=== PATIENT | female | born 1945 | race Caucasian/White ===

== ENCOUNTER 2017-09-06 17:06 | Inpatient (IN) | payer MEDICARE, OTHER ==
[~2017-09-06] VITALS: Ht 154.9 cm; Wt 68.2 kg
[2017-09-06] MEDS ORDERED: albuterol 2.5 MG/3 ML nebule NEB ONE (17:30)
[2017-09-06] MEDS ORDERED: levoFLOXACIN-Levaquin 750MG/D5 150 ML IV STA (17:54)
[2017-09-06] MEDS ORDERED: methylPREDNISolone sod succ 125mg/2ml vial IV ONE (17:55)
[2017-09-06 17:58] LABS: BASOPHILS % (AUTO) 0 % (0-1); EOSINOPHILS # (AUTO) 1.4 X10'3 (0-0.9); EOSINOPHILS % (AUTO) 17.2 % (0-6); HEMATOCRIT 42.7 % (35.0-45.0); HEMOGLOBIN 14.8 g/dl (12.0-16.0); LYMPHOCYTES # (AUTO) 1.3 X10'3 (1.1-4.8); LYMPHOCYTES % (AUTO) 16.2 % (21-51); MEAN CORPUSCULAR HEMOGLOBIN 32.4 PG (27.0-31.0); MEAN CORPUSCULAR HGB CONC 34.6 % (33.0-36.5); MEAN CORPUSCULAR VOLUME 93.6 FL (78-98); MEAN PLATELET VOLUME 7.3 FL (7.4-10.4); MONOCYTES # (AUTO) 0.5 X10'3 (0-0.9); MONOCYTES % (AUTO) 6.7 % (2-12); NEUTROPHILS # (AUTO) 4.8 X10'3 (1.8-7.7); NEUTROPHILS % (AUTO) 59.9 % (42-75); PLATELET COUNT 290 X10'3 (140-440); RED BLOOD COUNT 4.57 X10'6 (4.20-5.60); RED CELL DISTRIBUTION WIDTH 14.4 % (11.5-14.5)
[2017-09-06 18:08] LABS: PARTIAL THROMBOPLASTIN TIME 27 SECONDS (22-32)
[2017-09-06 18:15] LABS: ALANINE AMINOTRANSFERASE 24 U/L (12-78); ALBUMIN/GLOBULIN RATIO 1.1 (1.1-1.5); ALKALINE PHOSPHATASE 73 IU/L (46-116); ANION GAP 11 (8-16); ASPARTATE AMINO TRANSFERASE 20 U/L (10-37); BILIRUBIN,TOTAL 0.5 MG/DL (0.1-1.0); BLOOD UREA NITROGEN 10 MG/DL (7-18); BUN/CREATININE RATIO 13.3 (6.6-38.0); CALCIUM 8.6 MG/DL (8.5-10.1); CHLORIDE 103 MMOL/L (99-107); CREATININE 0.75 MG/DL (0.40-0.90); GLUCOSE 113 MG/DL (70-104); POTASSIUM 4.1 MMOL/L (3.5-5.1); SODIUM 140 MMOL/L (135-145); TOTAL CARBON DIOXIDE 26.4 MMOL/L (24-32); TOTAL PROTEIN 7.5 G/DL (6.4-8.2); eGFR 76 ML/MIN
[2017-09-06] MEDS ORDERED: aspirin 325mg tablet PO ONE (18:35)
[2017-09-06] MEDS ORDERED: heparin 10,000 units/1 ML INJ IV PRN (18:35)
[2017-09-06] MEDS ORDERED: heparin 10,000 units/1 ML INJ IV ONE (18:35)
[2017-09-06] MEDS ORDERED: PRAV20TA4 PO (19:29)
[2017-09-06] MEDS ORDERED: LOSA25TA96 PO (19:29)
[2017-09-06] MEDS ORDERED: UMEC62.5 IH (19:37)
[2017-09-06] MEDS ORDERED: ALBU1.257 NEB (19:38)
[2017-09-06] MEDS: aspirin 81mg tab.chew PO SCH (20:00)
[2017-09-06] MEDS ORDERED: acetaminophen 325mg tablet PO PRN ×2 (20:00)
[2017-09-06] MEDS: heparin, porcine 5000 units/ml vial SQ SCH (20:00)
[2017-09-06] MEDS: methylPREDNISolone sod succ 125mg/2ml vial IV SCH (20:00)
[2017-09-06] MEDS ORDERED: magnesium hydroxide 30ml (MOM) UD suspension PO PRN (20:00)
[2017-09-06] MEDS ORDERED: ondansetron/PF 4mg/2ml inj IV PRN (20:00)
[2017-09-06] MEDS ORDERED: morphine 4 MG/ML inj SYRINge IV PRN ×2 (20:00)
[2017-09-06] MEDS ORDERED: HYDROcodone/acetaminophen 10/325mg tab PO PRN (20:00)
[2017-09-06] MEDS ORDERED: metoclopramide 5 mg/ml inj IV PRN (20:00)
[2017-09-06] MEDS: levoFLOXACIN-Levaquin 500mg/D5 100 ML IV SCH (20:00)
[2017-09-06] MEDS ORDERED: HYDROmorphone 1 mg/ml syringe IV PRN ×2 (20:00)
[2017-09-06] MEDS ORDERED: bisacodyl 10mg suppository rectal RC PRN (20:00)
[2017-09-06] MEDS ORDERED: mag hydrox/Alum hydrox/simeth 30ml oral suspension PO PRN (20:00)
[2017-09-06] MEDS ORDERED: HYDROcodone/acetaminophen 5mg/325mg tablet PO PRN (20:00)
[2017-09-06] MEDS ORDERED: diphenhydrAMINE 25mg capsule PO PRN (20:00)
[2017-09-06] MEDS ORDERED: diphenhydrAMINE 50 mg/ml inj IV PRN (20:00)
[2017-09-06] MEDS ORDERED: acetaminophen 650mg rectal suppository RC PRN (20:00)
[2017-09-06] MEDS: normal saline 1000ml 1,000 ML IV SCH (20:19)
[2017-09-06] MEDS ORDERED: temazepam 15mg capsule PO PRN (21:00)
[2017-09-06 21:18] VITALS: BP 150/81
[2017-09-06 21:22] LABS: HEMOGLOBIN A1C 5.8 % (4.5-6.2)
[2017-09-06 21:39] LABS: MAGNESIUM 1.9 MG/DL (1.5-2.4); PHOSPHORUS 3.4 MG/DL (2.3-4.5)
[2017-09-06] MEDS: atorvastatin 20mg tablet PO SCH (21:40)
[2017-09-06] MEDS: lisinopril 10 MG tablet PO SCH (21:40)
[2017-09-06] MEDS: metoprolol tartrate 50mg tablet PO SCH (21:40)
[2017-09-06] MEDS: docusate sod 100mg capsule PO SCH (21:40)
[2017-09-06] MEDS ORDERED: albuterol 2.5 MG/3 ML nebule ONE (22:47)
[2017-09-06] MEDS: albuterol 2.5 MG/3 ML nebule NEB PRN (22:48)
[2017-09-06 23:00] VITALS: BP 164/102
[2017-09-07 00:04] LABS: D-DIMER 1.16 MG/L FEU (0-0.50)
[2017-09-07] MEDS: albuterol 2.5 MG/3 ML nebule NEB PRN ×5 (02:42→23:08)
[2017-09-07 03:00] VITALS: BP 127/75
[2017-09-07] MEDS: normal saline 1000ml 1,000 ML IV SCH ×3 (03:21→21:49)
[2017-09-07 06:00] VITALS: BP 97/55
[2017-09-07 07:15] LABS: BASOPHILS % (AUTO) 0.4 % (0-1); EOSINOPHILS % (AUTO) 0.4 % (0-6); HEMATOCRIT 40.5 % (35.0-45.0); HEMOGLOBIN 13.8 g/dl (12.0-16.0); LYMPHOCYTES % (AUTO) 14.8 % (21-51); MEAN CORPUSCULAR HEMOGLOBIN 32.2 PG (27.0-31.0); MEAN CORPUSCULAR HGB CONC 34.2 % (33.0-36.5); MEAN CORPUSCULAR VOLUME 94.1 FL (78-98); MEAN PLATELET VOLUME 8.5 FL (7.4-10.4); MONOCYTES # (AUTO) 0.2 X10'3 (0-0.9); MONOCYTES % (AUTO) 3.3 % (2-12); NEUTROPHILS # (AUTO) 5.7 X10'3 (1.8-7.7); NEUTROPHILS % (AUTO) 81.1 % (42-75); PLATELET COUNT 299 X10'3 (140-440); RED BLOOD COUNT 4.31 X10'6 (4.20-5.60); RED CELL DISTRIBUTION WIDTH 14.4 % (11.5-14.5); WHITE BLOOD COUNT 7.1 X10'3 (4.5-11.0)
[2017-09-07 07:31] LABS: ALANINE AMINOTRANSFERASE 18 U/L (12-78); ALBUMIN 3.4 G/DL (3.4-5.0); ALBUMIN/GLOBULIN RATIO 1.1 (1.1-1.5); ALKALINE PHOSPHATASE 62 IU/L (46-116); ANION GAP 9 (8-16); ASPARTATE AMINO TRANSFERASE 17 U/L (10-37); BILIRUBIN,TOTAL 0.4 MG/DL (0.1-1.0); BLOOD UREA NITROGEN 16 MG/DL (7-18); CALCIUM 8.8 MG/DL (8.5-10.1); CHLORIDE 102 MMOL/L (99-107); CREATININE 0.89 MG/DL (0.40-0.90); GLUCOSE 129 MG/DL (70-104); POTASSIUM 4.5 MMOL/L (3.5-5.1); SODIUM 139 MMOL/L (135-145); TOTAL CARBON DIOXIDE 27.8 MMOL/L (24-32); TOTAL PROTEIN 6.6 G/DL (6.4-8.2); eGFR 63 ML/MIN
[2017-09-07 07:34] LABS: CHOL/HDL RATIO 2.1 (0.00-4.99); CHOLESTEROL 182 MG/DL (0-200); HDL CHOLESTEROL 88 MG/DL (35-60); LDL CHOLESTEROL 81 MG/DL (50-100); TRIGLYCERIDES 25 MG/DL (20-135)
[2017-09-07] MEDS: docusate sod 100mg capsule PO SCH ×2 (07:57→20:47)
[2017-09-07] MEDS: levoFLOXACIN-Levaquin 500mg/D5 100 ML IV SCH (07:57)
[2017-09-07] MEDS: pantoprazole 40mg Tablet.DR PO SCH (07:59)
[2017-09-07] MEDS: atorvastatin 20mg tablet PO SCH ×2 (07:59→20:47)
[2017-09-07] MEDS: heparin, porcine 5000 units/ml vial SQ SCH (08:00)
[2017-09-07] MEDS: methylPREDNISolone sod succ 125mg/2ml vial IV SCH ×2 (08:00→20:47)
[2017-09-07] MEDS: metoprolol tartrate 50mg tablet PO SCH (08:01)
[2017-09-07] MEDS: lisinopril 10 MG tablet PO SCH (08:01)
[2017-09-07] MEDS: aspirin 81mg tab.chew PO SCH (08:01)
[2017-09-07] MEDS: nitroGLYCERIN 0.4mg/hour patch TD SCH (08:02)
[2017-09-07 11:00] VITALS: BP 121/68
[2017-09-07] MEDS ORDERED: iohexol 350MG/ML 100ml bottle IV ONE (12:18)
[2017-09-07 15:00] VITALS: BP 108/63
[2017-09-07 18:00] VITALS: BP 113/60
[2017-09-07] MEDS: lactobacillus rhamnosus 10,000 MMU CELLS/CAPSULE PO SCH (20:48)
[2017-09-07 22:00] VITALS: BP 110/70
[2017-09-08 01:49] LABS: HEMOGLOBIN 12.6 g/dl (12.0-16.0)
[2017-09-08 02:00] VITALS: BP 113/67
[2017-09-08 02:00] LABS: HEMATOCRIT 37.3 % (35.0-45.0); MEAN CORPUSCULAR HEMOGLOBIN 32.1 PG (27.0-31.0); MEAN CORPUSCULAR HGB CONC 33.9 % (33.0-36.5); MEAN CORPUSCULAR VOLUME 94.8 FL (78-98); MEAN PLATELET VOLUME 8.8 FL (7.4-10.4); PLATELET COUNT 280 X10'3 (140-440); RED BLOOD COUNT 3.93 X10'6 (4.20-5.60); RED CELL DISTRIBUTION WIDTH 13.8 % (11.5-14.5); WHITE BLOOD COUNT 12.1 X10'3 (4.5-11.0)
[2017-09-08 02:04] LABS: ALANINE AMINOTRANSFERASE 22 U/L (12-78); ALBUMIN 3.4 G/DL (3.4-5.0); ALBUMIN/GLOBULIN RATIO 1.1 (1.1-1.5); ALKALINE PHOSPHATASE 57 IU/L (46-116); ANION GAP 10 (8-16); ASPARTATE AMINO TRANSFERASE 17 U/L (10-37); BILIRUBIN,TOTAL 0.3 MG/DL (0.1-1.0); BLOOD UREA NITROGEN 22 MG/DL (7-18); BUN/CREATININE RATIO 25.3 (6.6-38.0); CALCIUM 8.5 MG/DL (8.5-10.1); CHLORIDE 99 MMOL/L (99-107); CREATININE 0.87 MG/DL (0.40-0.90); GLUCOSE 159 MG/DL (70-104); POTASSIUM 3.7 MMOL/L (3.5-5.1); SODIUM 134 MMOL/L (135-145); TOTAL CARBON DIOXIDE 25.1 MMOL/L (24-32); TOTAL PROTEIN 6.6 G/DL (6.4-8.2); eGFR 64 ML/MIN
[2017-09-08 02:29] LABS: TOTAL CELLS COUNTED 100
[2017-09-08 02:30] LABS: PLATELET ESTIMATE NORMAL
[2017-09-08 06:00] VITALS: BP 124/68
[2017-09-08] MEDS: pantoprazole 40mg Tablet.DR PO SCH (06:40)
[2017-09-08] MEDS: levoFLOXACIN-Levaquin 500mg/D5 100 ML IV SCH (08:30)
[2017-09-08] MEDS: methylPREDNISolone sod succ 125mg/2ml vial IV SCH ×2 (08:30→20:12)
[2017-09-08] MEDS: lactobacillus rhamnosus 10,000 MMU CELLS/CAPSULE PO SCH ×2 (08:31→20:11)
[2017-09-08] MEDS: docusate sod 100mg capsule PO SCH ×2 (08:31→20:11)
[2017-09-08] MEDS: atorvastatin 20mg tablet PO SCH (08:31)
[2017-09-08] MEDS: aspirin 81mg tab.chew PO SCH (08:32)
[2017-09-08] MEDS: nitroGLYCERIN 0.4mg/hour patch TD SCH (08:33)
[2017-09-08] MEDS: metoprolol tartrate 50mg tablet PO SCH (08:33)
[2017-09-08] MEDS: lisinopril 10 MG tablet PO SCH (08:34)
[2017-09-08] MEDS: albuterol 2.5 MG/3 ML nebule NEB PRN ×2 (08:53→15:08)
[2017-09-08 11:00] VITALS: BP 101/64
[2017-09-08 15:00] VITALS: BP 114/69
[2017-09-08 18:00] VITALS: BP 115/60
[2017-09-08 20:00] VITALS: BP 153/84
[2017-09-08] MEDS ORDERED: normal saline 1000ml 1,000 ML IV SCH (20:00)
[2017-09-09] VITALS (15 sets, daily range): BP systolic 93–167; BP diastolic 58–97
[2017-09-09 06:33] LABS: BASOPHILS % (AUTO) 0.1 % (0-1); EOSINOPHILS % (AUTO) 0 % (0-6); HEMATOCRIT 37.4 % (35.0-45.0); HEMOGLOBIN 12.5 g/dl (12.0-16.0); LYMPHOCYTES % (AUTO) 11.2 % (21-51); MEAN CORPUSCULAR HEMOGLOBIN 31.6 PG (27.0-31.0); MEAN CORPUSCULAR HGB CONC 33.4 % (33.0-36.5); MEAN CORPUSCULAR VOLUME 94.6 FL (78-98); MEAN PLATELET VOLUME 7.8 FL (7.4-10.4); MONOCYTES # (AUTO) 0.6 X10'3 (0-0.9); MONOCYTES % (AUTO) 6.2 % (2-12); NEUTROPHILS # (AUTO) 7.5 X10'3 (1.8-7.7); NEUTROPHILS % (AUTO) 82.5 % (42-75); PLATELET COUNT 265 X10'3 (140-440); RED BLOOD COUNT 3.95 X10'6 (4.20-5.60); RED CELL DISTRIBUTION WIDTH 13.9 % (11.5-14.5)
[2017-09-09 07:06] LABS: ALANINE AMINOTRANSFERASE 21 U/L (12-78); ALBUMIN 3.2 G/DL (3.4-5.0); ALBUMIN/GLOBULIN RATIO 1.1 (1.1-1.5); ALKALINE PHOSPHATASE 50 IU/L (46-116); ANION GAP 7 (8-16); ASPARTATE AMINO TRANSFERASE 14 U/L (10-37); BILIRUBIN,TOTAL 0.3 MG/DL (0.1-1.0); BLOOD UREA NITROGEN 18 MG/DL (7-18); CALCIUM 8.6 MG/DL (8.5-10.1); CHLORIDE 107 MMOL/L (99-107); CREATININE 0.82 MG/DL (0.40-0.90); GLUCOSE 122 MG/DL (70-104); POTASSIUM 4.5 MMOL/L (3.5-5.1); SODIUM 143 MMOL/L (135-145); TOTAL CARBON DIOXIDE 29.1 MMOL/L (24-32); eGFR 69 ML/MIN
[2017-09-09] MEDS: nitroGLYCERIN 0.4mg/hour patch TD SCH (08:00)
[2017-09-09] MEDS: levoFLOXACIN-Levaquin 500mg/D5 100 ML IV SCH (08:26)
[2017-09-09] MEDS: methylPREDNISolone sod succ 125mg/2ml vial IV SCH ×2 (08:26→22:11)
[2017-09-09] MEDS: pantoprazole 40mg Tablet.DR PO SCH (08:27)
[2017-09-09] MEDS: lisinopril 10 MG tablet PO SCH (08:27)
[2017-09-09] MEDS: docusate sod 100mg capsule PO SCH ×2 (08:27→20:00)
[2017-09-09] MEDS: lactobacillus rhamnosus 10,000 MMU CELLS/CAPSULE PO SCH ×2 (08:27→22:11)
[2017-09-09] MEDS: aspirin 81mg tab.chew PO SCH (08:27)
[2017-09-09] MEDS: metoprolol tartrate 50mg tablet PO SCH (08:27)
[2017-09-09] MEDS ORDERED: midazolam 2 mg/2 ml injection ONE (15:41)
[2017-09-09] MEDS ORDERED: iohexol 350 MG/ML 50ML vial IV ONE (15:48)
[2017-09-09] MEDS ORDERED: heparin 1,000unit/ml 10ml vial 10 ML ONE (15:48)
[2017-09-09] MEDS ORDERED: LIDOcaine 1% 30ml preserv. free vial ONE (15:48)
[2017-09-09] MEDS ORDERED: nitroGLYCERIN-Tridil 50MG/D5W 250 ML IV ONE (15:48)
[2017-09-09] MEDS ORDERED: iohexol 350MG/ML 100ml bottle IV ONE (15:48)
[2017-09-09 16:50] LABS: ISTAT Hct MIX 34 %PCV (35-48); ISTAT O2 SATURATION MIX VENOUS 69 % (60-80); ISTAT SOURCE MIX
[2017-09-09 16:50] LABS: ISTAT HGB ART 11.9 g/dl (12.0-16.0); ISTAT Hct ART 35 %PCV (35-48); ISTAT O2 SATURATION ARTERIAL 94 % (95-98); ISTAT SOURCE ART
[2017-09-10 02:00] VITALS: BP 119/63
[2017-09-10 05:28] LABS: BASOPHILS % (AUTO) 0.1 % (0-1); EOSINOPHILS # (AUTO) 0.1 X10'3 (0-0.9); EOSINOPHILS % (AUTO) 1.6 % (0-6); HEMATOCRIT 38.1 % (35.0-45.0); HEMOGLOBIN 12.9 g/dl (12.0-16.0); LYMPHOCYTES % (AUTO) 10.1 % (21-51); MEAN CORPUSCULAR HGB CONC 33.8 % (33.0-36.5); MEAN CORPUSCULAR VOLUME 94.6 FL (78-98); MEAN PLATELET VOLUME 8.2 FL (7.4-10.4); MONOCYTES # (AUTO) 0.4 X10'3 (0-0.9); NEUTROPHILS # (AUTO) 8.1 X10'3 (1.8-7.7); NEUTROPHILS % (AUTO) 84.2 % (42-75); PLATELET COUNT 253 X10'3 (140-440); RED BLOOD COUNT 4.03 X10'6 (4.20-5.60); RED CELL DISTRIBUTION WIDTH 14.1 % (11.5-14.5); WHITE BLOOD COUNT 9.6 X10'3 (4.5-11.0)
[2017-09-10 05:58] LABS: ALANINE AMINOTRANSFERASE 21 U/L (12-78); ALBUMIN 3.3 G/DL (3.4-5.0); ALBUMIN/GLOBULIN RATIO 1.1 (1.1-1.5); ALKALINE PHOSPHATASE 54 IU/L (46-116); ANION GAP 8 (8-16); ASPARTATE AMINO TRANSFERASE 14 U/L (10-37); BILIRUBIN,TOTAL 0.3 MG/DL (0.1-1.0); BLOOD UREA NITROGEN 17 MG/DL (7-18); BUN/CREATININE RATIO 22.7 (6.6-38.0); CALCIUM 8.4 MG/DL (8.5-10.1); CHLORIDE 105 MMOL/L (99-107); CREATININE 0.75 MG/DL (0.40-0.90); GLUCOSE 127 MG/DL (70-104); POTASSIUM 4.2 MMOL/L (3.5-5.1); SODIUM 142 MMOL/L (135-145); TOTAL CARBON DIOXIDE 28.6 MMOL/L (24-32); TOTAL PROTEIN 6.3 G/DL (6.4-8.2); eGFR 76 ML/MIN
[2017-09-10 06:13] LABS: CHOL/HDL RATIO 2.2 (0.00-4.99); CHOLESTEROL 175 MG/DL (0-200); HDL CHOLESTEROL 80 MG/DL (35-60); LDL CHOLESTEROL 77 MG/DL (50-100); TRIGLYCERIDES 56 MG/DL (20-135)
[2017-09-10 06:43] VITALS: BP 127/64
[2017-09-10] MEDS: metoprolol tartrate 50mg tablet PO SCH (08:00)
[2017-09-10] MEDS: levoFLOXACIN-Levaquin 500mg/D5 100 ML IV SCH (08:00)
[2017-09-10] MEDS: nitroGLYCERIN 0.4mg/hour patch TD SCH (08:00)
[2017-09-10] MEDS: methylPREDNISolone sod succ 125mg/2ml vial IV SCH (08:00)
[2017-09-10] MEDS ORDERED: METO50TA16 PO (08:27)
[2017-09-10] MEDS ORDERED: PANT40TA4 PO (08:27)
[2017-09-10] MEDS ORDERED: PRED10TA23 PO (08:27)
[2017-09-10] MEDS: aspirin 81mg tab.chew PO SCH (08:45)
[2017-09-10] MEDS: atorvastatin 20mg tablet PO SCH (08:45)
[2017-09-10] MEDS: lactobacillus rhamnosus 10,000 MMU CELLS/CAPSULE PO SCH (08:45)
[2017-09-10] MEDS: docusate sod 100mg capsule PO SCH (08:46)
[2017-09-10] MEDS: lisinopril 10 MG tablet PO SCH (08:46)
[2017-09-10 11:00] VITALS: BP 114/56
[2017-09-10] MEDS: albuterol 2.5 MG/3 ML nebule NEB PRN (11:53)
[2017-09-10] MEDS: pantoprazole 40mg Tablet.DR PO SCH (13:06)
== END 2017-09-10 14:04 | disposition home or self-care (01) | DRG 286 ==
LOC: ER 17:07 → ED HOLD 20:00 → PCU 3S 21:15
PROVIDERS: ADMIT Family Medicine; ATTEND Internal Medicine
PROC: B32T1ZZ Computerized Tomography (CT Scan) of Left Pulmonary Artery using Low Osmolar Contrast (ICD-10-PCS; principal; 2017-09-07)
PROC: B3201ZZ Computerized Tomography (CT Scan) of Thoracic Aorta using Low Osmolar Contrast (ICD-10-PCS; 2017-09-07)
PROC: B32S1ZZ Computerized Tomography (CT Scan) of Right Pulmonary Artery using Low Osmolar Contrast (ICD-10-PCS; 2017-09-07)
PROC: 4A023N8 Measurement of Cardiac Sampling and Pressure, Bilateral, Percutaneous Approach (ICD-10-PCS; 2017-09-09)
PROC: B2111ZZ Fluoroscopy of Multiple Coronary Arteries using Low Osmolar Contrast (ICD-10-PCS; 2017-09-09)
PROC: B2151ZZ Fluoroscopy of Left Heart using Low Osmolar Contrast (ICD-10-PCS; 2017-09-09)
DX: I25.10 Atherosclerotic heart disease of native coronary artery without angina pectoris (principal); J96.01 Acute respiratory failure with hypoxia; J44.1 Chronic obstructive pulmonary disease with (acute) exacerbation; E03.9 Hypothyroidism, unspecified; E78.5 Hyperlipidemia, unspecified; I10 Essential (primary) hypertension; M19.90 Unspecified osteoarthritis, unspecified site; R79.1 Abnormal coagulation profile; Z96.651 Presence of right artificial knee joint; Z79.899 Other long term (current) drug therapy; Z79.01 Long term (current) use of anticoagulants; Z79.82 Long term (current) use of aspirin; Z87.891 Personal history of nicotine dependence; Z83.3 Family history of diabetes mellitus; Z82.49 Family history of ischemic heart disease and other diseases of the circulatory system
CPT/HCPCS: 36415; 71045; 71275; 80053; 80061; 82803; 83036; 83690; 83735; 83880; 84100; 84443; 84484; 85014; 85025; 85347; 85379; 85610; 85730; 87070; 93005; 93306; 93460; 94640; 94667; 94668; 94760; 96365; 96366; 96375; 99152; 99285; A4620; A6257; C1769; J1644; J1956; J2250; J2270; J2405; J2930; J3490; J7030; Q9967